=== PATIENT | female | born 1950 | race Caucasian/White ===

== ENCOUNTER 2022-08-14 06:34 | Emergency (ER) | payer OTHER ==
[~2022-08-14] VITALS: Ht 167.6 cm; Wt 68.0 kg
--- NOTE | 2022-08-14 06:45 | NUR ---
ER DR. HENDERSON EXAMINING PT IN TRIAGE
[2022-08-14 07:00] VITALS: BP_SYST 131
--- NOTE | 2022-08-14 07:00 | NUR ---
Patient triaged and placed in waiting room. VSS and patient appears in no acute distress at this time. Awaiting available bed, and MD notified of need for MSE.
[2022-08-14] MEDS ORDERED: IBUP-1969 PO (07:21)
[2022-08-14] MEDS ORDERED: PSEU30TA36 PO (07:21)
[2022-08-14 07:40] VITALS: BP_SYST 131
--- NOTE | 2022-08-14 07:40 | NUR ---
Patient given written and verbal discharge instructions and verbalizes understanding. ER MD discussed with patient the results and treatment provided. Patient in stable condition. ID arm band removed. Rx of IBUPROFEN AND SUDAFED given. Patient educated on pain management and to follow up with PMD. Pain Scale 0/10. Opportunity for questions provided and answered. Medication side effect fact sheet provided.
== END 2022-08-14 07:40 | disposition home or self-care (01) ==
LOC: SED 06:34
DX: J40 Bronchitis, not specified as acute or chronic (principal); R05.9 Cough, unspecified; J02.9 Acute pharyngitis, unspecified; H92.03 Otalgia, bilateral; Z79.899 Other long term (current) drug therapy
CPT/HCPCS: 71045; 99283